=== PATIENT | male | born 1955 | race Caucasian/White ===

== ENCOUNTER → 2020-06-10 | Day surgery (SDC) | payer MEDICARE ==
[~2020-06-10] MED LIST: AMIODARONE HCL200 MG PO; CLOPIDOGREL75 MG PO; ELIQUIS5 MG PO; ENTRESTO 97 MG1 EACH PO; FUROSEMIDE40 MG PO; METOPROLOL SUCC50 MG PO; OR PHACO EYE KIT ONE; POTASSIUM CHLO20 ME1 PO; PREOP PHACO EYE KIT ONE; SIMVASTATIN20 MG PO
[2020-06-10 14:55] VITALS: BP 135/72
== END | disposition home or self-care (01) ==
LOC: OR 10:29
PROVIDERS: ATTEND Ophthalmology
DX: H25.12 Age-related nuclear cataract, left eye (principal); I25.10 Atherosclerotic heart disease of native coronary artery without angina pectoris; I48.91 Unspecified atrial fibrillation; I13.0 Hypertensive heart and chronic kidney disease with heart failure and stage 1 through stage 4 chronic kidney disease, or unspecified chronic kidney disease; N18.9 Chronic kidney disease, unspecified; I50.9 Heart failure, unspecified; E78.5 Hyperlipidemia, unspecified; E66.01 Morbid (severe) obesity due to excess calories; Z01.812 Encounter for preprocedural laboratory examination; Z20.822 Contact with and (suspected) exposure to COVID-19; Z79.02 Long term (current) use of antithrombotics/antiplatelets; Z86.73 Personal history of transient ischemic attack (TIA), and cerebral infarction without residual deficits; Z98.61 Coronary angioplasty status
CPT/HCPCS: 66984; U0002; V2632

== ENCOUNTER → 2020-06-28 | Day surgery (SDC) | payer MEDICARE ==
[~2020-06-28] MED LIST changes: +CYCLOPENTOLATE HCL 1% OPTH SOLN 2ML BTL ONE; +CYCLOPENTOLATE HCL 2% OPTH SOLN 2 ML BTL OP ONE; +EPINEPHRINE HCL 1:1000 1ML 1 MG/ML AMP ONE; +MOXIFLOXACIN HCL(OPTH) 3 ML BTL ONE; +PHENYLEPHRINE HCL 10% 5 ML OPTH SOLN ONE; -PREOP PHACO EYE KIT ONE; +TROPICAMIDE 1% OPTH SOLN 3ML ONE
[2020-06-28 08:30] VITALS: BP 134/75
== END | disposition home or self-care (01) ==
LOC: OR 06:04
PROVIDERS: ATTEND Ophthalmology
DX: H25.11 Age-related nuclear cataract, right eye (principal); I25.10 Atherosclerotic heart disease of native coronary artery without angina pectoris; I11.0 Hypertensive heart disease with heart failure; I50.9 Heart failure, unspecified; I48.91 Unspecified atrial fibrillation; Z01.812 Encounter for preprocedural laboratory examination; Z20.822 Contact with and (suspected) exposure to COVID-19; Z79.02 Long term (current) use of antithrombotics/antiplatelets; Z98.61 Coronary angioplasty status
CPT/HCPCS: 66984; J0171; U0002 ×2; V2632